=== PATIENT | female | born 1990 | race Caucasian/White ===

== ENCOUNTER 2018-11-13 04:03 | Emergency (ER) | payer OTHER ==
[~2018-11-13] VITALS: Ht 160 cm; Wt 77.1 kg
[~2018-11-13 04:03] MED LIST: ACYCLOVIR 800800 MG PO; ALBUTEROL INHAL17 GM IH; AZITHROMYC200 MG/51 PO; BACTRIM DS TAB1 EACH PO; BACTROBAN15 GM TP; BUSPAR; CIPROFLOXACIN500 M1 PO; FLAGYL500 MG PO; HYDROCODONE-ACE15 ML PO; IBUPROFEN 400400 M1 PO; NOHOMEMEDICATIONS; NORCO 5-325 TA1 EACH PO; NYQUIL D COLD295 ML PO; PHENERGAN 25 MG25 M1 PO; SEROQUEL 100 M100 MG PO; ZANTAC 150MG T150 M1 PO; ZOFRAN ODT4 MG PO
[2018-11-13] MEDS ORDERED: ACCUNEB SO1.25 MG/1 INH (04:12)
[2018-11-13 04:42] LABS: POTASSIUM 3.7 mmol/L (3.5-5.1)
[2018-11-13 04:43] LABS: ABSOLUTE NEUTROPHILS 4.2 thou/uL (1.4-8.2); BASOPHILS 0.7 % (0.0-2.0); HEMOGLOBIN 13.7 gm/dL (12.0-15.0); LYMPHOCYTES 38.1 % (24.0-44.0); MCH 30.7 pg (26.0-34.0); MCHC 34.3 g/dL (28.0-37.0); MCV 89.5 fL (80.0-100.0); PLATELET COUNT 325 thou/uL (150-400); POLYS 48.2 % (36.0-66.0); RBC 4.47 mil/uL (4.20-5.00); RDW 13.6 % (10.5-14.5); WBC 8.6 thou/uL (4.0-11.0)
[2018-11-13 04:48] LABS: ALBUMIN 3.8 g/dL (3.4-5.0); TOTAL BILIRUBIN 0.2 mg/dL (<0.1-1.0); TOTAL PROTEIN 7.3 g/dL (6.4-8.2)
[2018-11-13 05:31] LABS: URINE BILIRUBIN NEGATIVE (Negative); URINE BLOOD NEGATIVE (Negative); URINE CLARITY CLOUDY; URINE COLOR YELLOW; URINE GLUCOSE-RANDOM* NEGATIVE (Negative); URINE KETONES NEGATIVE (Negative); URINE LEUKOCYTES-REFLEX TRACE (Negative); URINE NITRITE-REFLEX NEGATIVE (Negative); URINE PROTEIN (DIPSTICK) NEGATIVE (Negative); URINE UROBILINOGEN 0.2 E.U./dl (0.2-1.0)
[2018-11-13] MEDS ORDERED: BENTYL 20 MG TA20 M1 PO (07:55)
[2018-11-13 07:58] VITALS: BP 110/72
== END 2018-11-13 07:58 | disposition home or self-care (01) ==
LOC: ER 04:03
PROVIDERS: Student in an Organized Health Care Education/Training Program
DX: R10.11 Right upper quadrant pain (principal); F17.210 Nicotine dependence, cigarettes, uncomplicated; F41.9 Anxiety disorder, unspecified; F32.9 Major depressive disorder, single episode, unspecified; J45.909 Unspecified asthma, uncomplicated; Z88.6 Allergy status to analgesic agent; Z88.0 Allergy status to penicillin

== ENCOUNTER 2019-05-17 01:53 | Emergency (ER) | payer OTHER ==
[~2019-05-17] VITALS: Ht 160 cm; Wt 72.6 kg
[~2019-05-17 01:53] MED LIST changes: +ACCUNEB SO1.25 MG/1 INH; +BENTYL 20 MG TA20 M1 PO
[2019-05-17] MEDS ORDERED: BACTRIM DS TAB1 EAC1 PO (03:24)
[2019-05-17 03:30] VITALS: BP 132/75
== END 2019-05-17 03:30 | disposition home or self-care (01) ==
LOC: ER 01:53
DX: S60.412A Abrasion of right middle finger, initial encounter (principal); S60.414A Abrasion of right ring finger, initial encounter; L08.9 Local infection of the skin and subcutaneous tissue, unspecified; F41.9 Anxiety disorder, unspecified; F32.9 Major depressive disorder, single episode, unspecified; J45.909 Unspecified asthma, uncomplicated; F17.210 Nicotine dependence, cigarettes, uncomplicated; Z88.6 Allergy status to analgesic agent; Z88.0 Allergy status to penicillin; W25.XXXA Contact with sharp glass, initial encounter; Y92.89 Other specified places as the place of occurrence of the external cause; Y93.89 Activity, other specified; Y99.8 Other external cause status

== ENCOUNTER 2019-11-01 09:39 | Emergency (ER) | payer OTHER ==
[~2019-11-01] VITALS: Ht 160 cm; Wt 72.6 kg
[~2019-11-01 09:39] MED LIST changes: +BACTRIM DS TAB1 EAC1 PO
[2019-11-01 10:21] LABS: ABSOLUTE NEUTROPHILS 4.9 thou/uL (1.4-8.2); EOSINOPHILS 4.9 % (0.0-3.0); HEMOGLOBIN 13.3 gm/dL (12.0-15.0); LYMPHOCYTES 31.3 % (24.0-44.0); MCHC 34.9 g/dL (28.0-37.0); MCV 91.5 fL (80.0-100.0); MONOCYTES 6.5 % (1.0-8.0); PLATELET COUNT 350 thou/uL (150-400); POLYS 56.3 % (36.0-66.0); RBC 4.15 mil/uL (4.20-5.00); RDW 13.2 % (10.5-14.5); WBC 8.6 thou/uL (4.0-11.0)
[2019-11-01 10:39] LABS: ALBUMIN 3.6 g/dL (3.4-5.0); TOTAL BILIRUBIN 0.3 mg/dL (<0.1-1.0); TOTAL PROTEIN 6.7 g/dL (6.4-8.2)
[2019-11-01 10:45] LABS: CALCIUM 8.6 mg/dL (8.5-10.1); POTASSIUM 3.9 mmol/L (3.5-5.1)
[2019-11-01 13:26] VITALS: BP 103/42
== END 2019-11-01 13:20 | disposition home or self-care (01) ==
LOC: ER 09:39
PROVIDERS: Emergency Medicine
DX: R10.11 Right upper quadrant pain (principal); R11.10 Vomiting, unspecified; J45.909 Unspecified asthma, uncomplicated; F17.210 Nicotine dependence, cigarettes, uncomplicated; Z88.6 Allergy status to analgesic agent; Z88.0 Allergy status to penicillin; Z88.2 Allergy status to sulfonamides

== ENCOUNTER 2020-04-04 12:50 | Emergency (ER) | payer OTHER ==
[~2020-04-04] VITALS: Ht 160 cm; Wt 72.6 kg
[2020-04-04 14:58] LABS: BASOPHILS 0.2 % (0.0-2.0); EOSINOPHILS 2.4 % (0.0-3.0); HEMATOCRIT 43.7 % (37.0-47.0); HEMOGLOBIN 14.4 gm/dL (12.0-15.0); LYMPHOCYTES 14.5 % (24.0-44.0); MCH 30.4 pg (26.0-34.0); MCV 92.1 fL (80.0-100.0); MONOCYTES 7.2 % (1.0-8.0); PLATELET COUNT 327 thou/uL (150-400); POLYS 75.7 % (36.0-66.0); RBC 4.74 mil/uL (4.20-5.00); RDW 13.7 % (10.5-14.5); WBC 13.2 thou/uL (4.0-11.0)
[2020-04-04 15:07] LABS: CALCIUM 8.9 mg/dL (8.5-10.1); CREATININE 0.8 mg/dL (0.6-1.0); POTASSIUM 4.1 mmol/L (3.5-5.1)
[2020-04-04 15:12] LABS: ALBUMIN 3.3 g/dL (3.4-5.0); TOTAL BILIRUBIN 0.5 mg/dL (0.2-1.0); TOTAL PROTEIN 6.5 g/dL (6.4-8.2)
[2020-04-04 15:30] LABS: URINE BILIRUBIN NEGATIVE (Negative); URINE BLOOD NEGATIVE (Negative); URINE CLARITY CLEAR; URINE COLOR YELLOW; URINE GLUCOSE-RANDOM* NEGATIVE (Negative); URINE KETONES NEGATIVE (Negative); URINE LEUKOCYTES-REFLEX NEGATIVE (Negative); URINE NITRITE-REFLEX NEGATIVE (Negative); URINE PROTEIN (DIPSTICK) NEGATIVE (Negative); URINE SPECIFIC GRAVITY 1.025 (1.005-1.035); URINE UROBILINOGEN 0.2 E.U./dl (0.2-1.0)
[2020-04-04] MEDS ORDERED: ONDANSETRON HCL4 M2 PO (17:05)
[2020-04-04] MEDS ORDERED: NORCO 5-325 TA1 EAC2 PO (17:05)
[2020-04-04 17:26] VITALS: BP 124/75
--- NOTE | 2020-04-05 11:20 | EKG ---
[facility] [place] [address] ELECTROCARDIOGRAM REPORT Name: TRINA COLON [id number] Admission: 04/04/20 Attend Phys: Discharge: 04/04/20 Date of : 89 Report #: [id number] THIS REPORT FOR: cc: KAREN Staples family physician/PCP KAREN Staples family physician/PCP Timothy Pierce MD [facility] ~ THIS REPORT FOR: //name// [facility] ED Test Date: 2020-04-04 Test Time: 15:05:05 Pat Name: TRINA COLON Department: Room: Gender: F [employer] Consultant: no : 1990 Requested By: Susan Thakkar Order Number: [id number] MD: Timothy Pierce Measurements Intervals [place] Rate: 67 P: 50 DC: 128 QRS: 68 QRSD: 88 T: 53 QT: 400 QTc: 423 Interpretive Statements Sinus rhythm Low voltage, precordial leads No previous ECG available for comparison Electronically Signed On 04-05-2020 11:20:11 CDT by Timothy Pierce [email or web address] <ELECTRONICALLY SIGNED> By: Timothy Pierce MD, FACC 04/05/20 1120 1505 1505 Timothy Pierce MD, FAC /EPI
== END 2020-04-04 17:26 | disposition home or self-care (01) ==
LOC: ER 12:50
PROVIDERS: Physician Assistant
DX: K80.50 Calculus of bile duct without cholangitis or cholecystitis without obstruction (principal); J45.909 Unspecified asthma, uncomplicated; F17.210 Nicotine dependence, cigarettes, uncomplicated; Z88.0 Allergy status to penicillin; Z88.2 Allergy status to sulfonamides; Z88.6 Allergy status to analgesic agent; Z88.5 Allergy status to narcotic agent

== ENCOUNTER 2020-05-02 21:04 | Emergency (ER) | payer OTHER ==
[~2020-05-02 21:04] MED LIST changes: +NORCO 5-325 TA1 EAC2 PO; +ONDANSETRON HCL4 M2 PO
[2020-05-02 21:09] VITALS: BP 137/89
== END 2020-05-02 21:20 | disposition left against medical advice (07) ==
LOC: ER 21:04
DX: R56.9 Unspecified convulsions (principal); Z53.21 Procedure and treatment not carried out due to patient leaving prior to being seen by health care provider

== ENCOUNTER 2020-06-08 19:56 | Emergency (ER) | payer OTHER ==
[~2020-06-08] VITALS: Ht 160 cm; Wt 72.6 kg
[2020-06-08 20:18] LABS: ABSOLUTE NEUTROPHILS 10.9 thou/uL (1.4-8.2); BASOPHILS 0.8 % (0.0-2.0); EOSINOPHILS 4.2 % (0.0-3.0); HEMATOCRIT 41.8 % (37.0-47.0); HEMOGLOBIN 14.3 gm/dL (12.0-15.0); MCHC 34.2 g/dL (28.0-37.0); MCV 90.7 fL (80.0-100.0); MONOCYTES 5.6 % (1.0-8.0); PLATELET COUNT 329 thou/uL (150-400); POLYS 71.4 % (36.0-66.0); RBC 4.61 mil/uL (4.20-5.00); RDW 13.1 % (10.5-14.5); WBC 15.2 thou/uL (4.0-11.0)
[2020-06-08 20:22] LABS: CALCIUM 8.7 mg/dL (8.5-10.1); CREATININE 0.9 mg/dL (0.6-1.0); POTASSIUM 3.6 mmol/L (3.5-5.1)
[2020-06-08 22:06] VITALS: BP 106/71
== END 2020-06-08 22:07 | disposition left against medical advice (07) ==
LOC: ER 19:56
PROVIDERS: Nurse Practitioner
DX: S80.211A Abrasion, right knee, initial encounter (principal); M79.601 Pain in right arm; G83.89 Other specified paralytic syndromes; R20.0 Anesthesia of skin; J45.909 Unspecified asthma, uncomplicated; F32.9 Major depressive disorder, single episode, unspecified; F41.9 Anxiety disorder, unspecified; F17.210 Nicotine dependence, cigarettes, uncomplicated; Z88.6 Allergy status to analgesic agent; Z88.0 Allergy status to penicillin; Z88.2 Allergy status to sulfonamides; Z88.5 Allergy status to narcotic agent; V49.88XA Car occupant (driver) (passenger) injured in other specified transport accidents, initial encounter; Y93.89 Activity, other specified; Y92.89 Other specified places as the place of occurrence of the external cause; Y99.9 Unspecified external cause status

== ENCOUNTER 2020-07-16 20:04 | Emergency (ER) | payer OTHER ==
[~2020-07-16] VITALS: Ht 160 cm; Wt 72.6 kg
[2020-07-16 20:06] VITALS: BP 113/67
== END 2020-07-16 20:30 | disposition left against medical advice (07) ==
LOC: ER 20:04
DX: L03.113 Cellulitis of right upper limb (principal); J45.909 Unspecified asthma, uncomplicated; F17.210 Nicotine dependence, cigarettes, uncomplicated; Z88.0 Allergy status to penicillin; Z88.2 Allergy status to sulfonamides; Z88.5 Allergy status to narcotic agent; Z88.6 Allergy status to analgesic agent